=== PATIENT | male | born 1995 | race Caucasian/White ===

== ENCOUNTER 2020-12-05 16:17 | Outpatient (CLI) | payer BC, SELFPAY | END 2020-12-05 16:18 | disposition home or self-care (01) | DX: Z23 Encounter for immunization (principal) | CPT/HCPCS: 0001A; 91300 ==

== ENCOUNTER 2020-12-26 16:13 | Outpatient (CLI) | payer BC, SELFPAY | END 2020-12-26 16:14 | disposition home or self-care (01) | LOC: ANHCOVIDVC 16:14 | DX: Z23 Encounter for immunization (principal) | CPT/HCPCS: 0002A; 91300 ==